=== PATIENT | female | born 1950 | race Caucasian/White ===

== ENCOUNTER → 2017-04-29 07:34 | Outpatient (CLI) | payer MEDICARE ==
[2015-11-12 09:36] VITALS: BMI 32.1
[~2017-04-29 07:34] MED LIST: BAYER CHEWABLE81 MG PO; BENADRYL25 MG PO; CETIRIZINE HCL5 MG PO; CLARITIN10 MG/TAB; GLUCOPHAGE1000 MG PO; HYDROCODON-ACE1 EAC6; IMDUR30 MG PO; IMDUR60 MG PO; IPRAT-ALBUT 0.5-3 ML UPD; NITROSTAT0.4 MG; NORCO 7.5/325 T1 TA1 PO; PLAVIX75 MG PO; PREDNISONE20 MG PO; PROVENTIL/2.5 MG/3 M NEB; TRAZODONE HCL150 MG PO; VENTOLIN HFA18 GM INH; XANAX0.5 MG PO; ZANTAC150 MG PO; ZESTRIL20 MG PO
== END | disposition home or self-care (01) ==
LOC: D.RAD 04-11 08:30
DX: R13.12 Dysphagia, oropharyngeal phase (principal)

== ENCOUNTER 2018-07-17 08:09 | Outpatient (CLI) | payer MEDICARE ==
[~2018-07-17] VITALS: Ht 157.5 cm; Wt 81.8 kg
--- NOTE | ~2018-07-17 | OP ---
PATIENT NAME: GYPSY GARCIA MEDICAL RECORD: [id number] :50 LOCATION:D.CAT ADMISSION DATE: SURGEON: COLUMBA VALENTINE MD DATE OF OPERATION: 07/17/2018 PROCEDURES: 1. PTCA stent left main. 2. Intravascular ultrasound of left main. 3. Intravascular ultrasound of the LAD. 4. Left heart catheterization. 5. Selective coronary angiography. 6. Left ventriculogram. INDICATION: Angina and coronary artery disease. PROCEDURE IN DETAIL: After informed consent was obtained and after a detailed description of risks, benefits as well as alternative therapies, the patient elected to proceed with angiogram and angioplasty. The right radial area was prepped and draped in normal sterile fashion. Right radial artery was cannulated via modified Seldinger technique with placement of 6-Scottish sheath. All catheters exchanged through this sheath. FINDINGS: Left ventriculogram was performed in standard 30-degree BLAKE view, reveals good cardiac wall motion throughout all segments. Overall ejection fraction estimated 60%. SELECTIVE CORONARY ANGIOGRAPHY: 1. Left main is with greater than 80% stenosis confirmed by intravascular ultrasound. 2. Proximal LAD has greater than 80% stenosis confirmed by intravascular ultrasound. 3. Left circumflex has previously placed stents, these are widely patent with no significant restenosis. No disease elsewise throughout the circumflex or its branches. 4. The right coronary artery has previously placed stents, these are widely patent with no significant restenosis. No disease elsewise throughout the right coronary and its branches. PTCA STENT OF THE LEFT MAIN AND LAD: Both lesions were covered with a 3.5 x 26 mm [place]. Result was 0% residual stenosis. OVERALL IMPRESSION: Successful percutaneous transluminal coronary angioplasty stent of the left main and LAD, both going from 80% initial stenosis to 0% residual. TRANSINT:[id number] Voice Confirmation ID: [id number] DOCUMENT ID: [id number] OPERATIVE REPORT [id number] JOSEVINAYAKGYPSYCOLUMBA SUE MD at 1729 CC: [id number] DICTATION DATE: 07/17/18 1124 GLOBAL SAFETY OFFICER: 07/17/18 1139 DEP CLI 07/17/18 [place] [address]
--- NOTE | ~2018-07-17 | HP ---
PATIENT: GYPSY BALDWIN MEDICAL RECORD: [id number] ACCOUNT: [id number] LOCATION:KATIE : 50 ADMISSION DATE: 07/17/18 PCP: SLICK CAMP MD HISTORY AND PHYSICAL EXAMINATION DIAGNOSES: 1. Angina. 2. Abnormal nuclear stress test, anterior ischemia. 3. Hypertension. 4. Atrial fibrillation. HISTORY OF PRESENT ILLNESS: Mrs. Baldwin presents with anginal symptomatology. Nuclear stress test revealed a large perfusion defect anteriorly, now brought for cardiac catheterization. PHYSICAL EXAMINATION: GENERAL APPEARANCE: Well-nourished, well-developed, appears stated age. Level of distress, comfortable. PSYCHIATRIC: Mental status, alert, normal affect. Orientation, oriented to time, place and person. EYES: Lids and conjunctiva, noninjected. No discharge, no pallor. ENT: Lips, teeth, gums, normal dentition. Oropharynx, no cyanosis, no pallor. NECK: Carotid arteries, bilateral normal upstroke, no bruits, no thrills. JUGULAR VEINS: No jugular venous pressure or distention. CERVICAL LYMPH NODES: Nontender, nonenlarged. THYROID: Not enlarged. Nontender. No nodules. LUNGS: Respiratory effort, unlabored. CHEST: Normal curvature. No thoracic deformity. No chest wall tenderness. Percussion, resonant. Auscultation, clear. No wheezes, no rales, no rhonchi. CARDIOVASCULAR: Precordial exam, nondisplaced. No heaves or pericardial thrills. Rate and rhythm, regular. Heart sounds, normal S1, normal S2. No S3, no gallop, no rub. Systolic murmur, not heard. Diastolic murmur, not heard. EXTREMITIES: No cyanosis, no edema. Peripheral pulses, full and equal in all extremities, except as noted. No bruits appreciated. ABDOMEN: Soft, nondistended. Normal aorta. No bruit. Nontender. No masses. Liver, nontender, no hepatomegaly. Spleen, nontender, no splenomegaly. MUSCULOSKELETAL: No joint tenderness. No joint swelling. No erythema. NEUROLOGICAL: Normal gait, normal strength, normal tone. SKIN: Warm and dry. OVERALL IMPRESSION: Anginal symptomatology with abnormal nuclear stress test, most likely she has hemodynamically significant coronary artery disease. We will proceed with coronary angiography. Further care depends upon findings of the angiography. TRANSINT:[id number] Voice Confirmation ID: [id number] DOCUMENT ID: [id number] HISTORY AND PHYSICAL [id number] GYPSY BALDWIN JEFFREY MD at 1729 CC: [id number] DICTATION DATE: 07/17/18 1122 PSYCHOLOGICAL ASSISTANT: 07/17/18 1126 DEP CLI 07/17/18 [place] [id number] [place] [id number]
--- NOTE | ~2018-07-17 | HEMODYNAMI ---
PATIENT:GYPSY GARCIA MEDICAL RECORD: [id number] : 50 LOCATION:DNANCY ADMISSION DATE: 07/17/18 Generatedon:07/17/201811:23 Patient name: GYPSY GARCIA Patient #: [id number] SSN: D OB: 1950 Date of study: 07/17/2018 Page: Of Hemodynamic Procedure Report Patient Data Patient Demographics Procedure consent was obtained First Name: GYPSY Gender: Female Last Name: JOSE : 1950 Middle Initial: RICO Age: 67 year(s) Patient #: [id number] Race: Additional ID: [id number] Contact details [address]: [address] [place] [address] State: [place] City: [place] Zip code: [address] Past Medical History Allergies Allergen Reaction Date Comments Reported Other allergy 11/12/2015 Beta-Blockers, Codeine, Iodine, Protonix, Statins, Sulfa, Valium Admission Admission Data Admission Date: 07/17/2018 Admission Time: 8:09 Procedure Procedure Types Cath Procedure Diagnostic Procedure [facility] w/Coronaries FFR/IVUS Intra-Coronary IVUS Initial Intra-Coronary IVUS Additional PCI Procedure Coronary Stent Coronary Stent Initial Procedure Description Procedure Date Procedure Date: 07/17/2018 Procedure Start Time: 11:02 Procedure End Time: 11:21 Procedure Staff Name Function Han Nevarez MD Performing Physician Mynor Lynne RT Monitor Kyler Carlos RN Nurse Amy Tolentino RT Scrub Procedure Data Cath Procedure Fluoroscopy Diagnostic fluoroscopy Total fluoroscopy Time: 4 time: 4 min min Diagnostic fluoroscopy Total fluoroscopy dose: 419 dose: 419 mGy mGy Contrast Material Contrast Material Type Amount (ml) Isovue 300 87 Entry Location Entry Primary Successful Side Size Upsize Upsize Entry Closure Peng ccessful Closure Location (Fr) 1 (Fr) 2 (Fr) Remarks Device Remarks Radial Right 6 Fr Mechanical artery Short Compression Estimated blood loss: 10 ml Diagnostic catheters Device Type Used For End Catheter Placement DIAGNOSTIC [place] 110cm 5 Procedure Fr catheter ([id number]) Procedure Complications No complications Procedure Medications Medication Administration Route Dosage Oxygen etCO2 Nasal cannula 2 l/min Heparin Flush Bag added to field 2 bags (1000units/500ml NS) 0.9% NaCl I.V. ml/hr Radial Cocktail added to field 1 syringe (Verapomil 2mg/Nitro 400mcg/Heparin 1500units) Fentanyl I.V. 50 mcg Versed I.V. 1 mg Fentanyl I.V. 50 mcg Versed I.V. 1 mg Fentanyl I.V. 50 mcg Versed I.V. 1 mg Fentanyl I.V. 50 mcg Radial Cocktail I.A. 1 syringe (Verapomil 2mg/Nitro 400mcg/Heparin 1500units) Versed I.V. 1 mg Heparin Bolus I.V. 4000 units Hemodynamics Rest Heart Rate: 70 (bpm) Pressure Samples Time Site Value (mmHg) Purpose Heart Use Rate(bpm) 11:05 AO 78/47(61) Snapshot 68 Snapshots Pre Cath Intra NCS Post Cath Vital Signs Time Heart Resp SPO2 etCO2 NIBP (mmHg) Rhythm Pain Sedation Rate (ipm) (%) (mmHg) Status Level (bpm) 10:31:41 70 17 92 0 179/103(155) NSR 0 (11) 10(A) , No pain 10:36:15 70 16 93 0 191/105(158) NSR 0 (11) 10(A) , No pain 10:40:44 66 17 93 30.7 165/89(136) NSR 0 (11) 10(A) , No pain 10:45:06 64 16 92 7.5 139/77(116) NSR 0 (11) 9(A) , No pain 10:49:24 64 16 93 40.5 134/75(89) NSR 0 (11) 9(A) , No pain 10:53:34 66 17 94 39 123/80(95) NSR 0 (11) 9(A) , No pain 10:57:48 65 16 94 41.2 119/70(86) NSR 0 (11) 9(A) , No pain 11:02:00 68 17 94 36 127/81(116) NSR 0 (11) 9(A) , No pain 11:06:08 66 17 93 26.2 112/67(81) NSR 0 (11) 9(A) , No pain 11:10:21 66 17 94 40.5 105/57(83) NSR 0 (11) 9(A) , No pain 11:14:31 66 16 94 36.7 119/68(96) NSR 0 (11) 9(A) , No pain 11:17:50 66 15 93 0 136/75(94) NSR 0 (11) 9(A) , No pain Medications Time Medication Route Dose Verified Delivered Reason Not es Effectiveness by by 10:30:49 Oxygen etCO2 2 l/min Han Vickers Per physician Nasal Roque Prescott RN cannula 10:30:58 Heparin Flush added 2 bags Han Vickers used for Bag to Roque Prescott RN procedure (1000units/500ml field NS) 10:31:06 0.9% NaCl I.V. ml/hr Han Vickers Per physician Roque Prescott RN 10:31:13 Radial Cocktail added 1 Han Vickers used for (Verapomil to syringe Roque Prescott RN procedure 2mg/Nitro field 400mcg/Heparin 1500units) 10:43:01 Fentanyl I.V. 50 mcg Han Vickers for sedation Roque Prescott RN 10:43:07 Versed I.V. 1 mg Han Navay for sedation Roque Prescott RN 10:46:55 Fentanyl I.V. 50 mcg Han Navay for sedation Roque Prescott RN 10:47:00 Versed I.V. 1 mg Han Vickers for sedation Roque Prescott RN 10:52:40 Fentanyl I.V. 50 mcg Han Navay for sedation Roque Prescott RN 11:03:14 Versed I.V. 1 mg Han [place] for sedation Roque Prescott RN 11:04:47 Fentanyl I.V. 50 mcg Han Navay for sedation Roque Prescott RN 11:04:58 Radial Cocktail I.A. 1 Han Short for (Verapomil syringe Roque Nevarez MD vasodilation 2mg/Nitro 400mcg/Heparin 1500units) 11:05:37 Versed I.V. 1 mg Han Vickers for sedation Roque Prescott RN 11:11:41 Heparin Bolus I.V. 4000 Han Vickers for units Roque Prescott RN anticoagulation Procedure Log Time Note 10:00:16 Amy Tolentino RT(R) sent for patient. Start room use. 10:13:17 Time tracking: Regular hours (M-F 7:00 - 5:00) 10:13:21 Plan of Care:Hemodynamics will remain stable., Cardiac rhythm will remain stable., Comfort level will be maintained., Respiratory function will remain adequate., Patient/ family verbilizes understanding of procedure., Procedure tolerated without complication., Recovers from procedure without complications.. 10:22:22 Patient received from Pre/Post Procedure Room to [facility] 3 Alert and oriented. Tansferred to table in Supine position. 10:22:23 Warm blankets applied, and dante hugger turned on for patient comfort. 10::23 Correct patient and procedure confirmed by team. 10:22:24 Signed procedure consent form obtained from patient. 10:22:25 ECG and BP/O2 sat monitors applied to patient. 10:30:21 Vital chart was started 10:30:49 Oxygen 2 l/min etCO2 Nasal cannula was administered by Rancho Prescott RN; Per physician; 10:30:58 Heparin Flush Bag (1000units/500ml NS) 2 bags added to field was administered by Rancho Prescott RN; used for procedure; 10:31:06 0.9% NaCl ml/hr I.V. was administered by Rancho Prescott RN; Per physician; 10:31:13 Radial Cocktail (Verapomil 2mg/Nitro 400mcg/Heparin 1500units) 1 syringe added to field was administered by Rancho Prescott RN; used for procedure; 10:36:33 Baseline sample Acquired. 10:36:37 Rhythm: sinus rhythm 10:36:39 Full Disclosure recording started 10:38:32 H&P Date Dictated: 07/17/2018 H&P Addendum completed by physician on day of procedure. (MUST COMPLETE FOR ALL OUTPATIENTS), New H&P dictated by physician.. 10:38:33 Pre-procedure instructions explained to patient. 10:38:33 Pre-op teaching completed and patient verbalized understanding. 10:38:35 Family in patients room. 10:38:36 Patient NPO since Midnight. 10:38:47 Is the patient allergic to Iodine/contrast media? Yes. 10:38:48 Was the patient premedicated? Yes 10:39:01 Is patient on blood thinner?Yes 10:39:03 ACC The patient was administered the following blood thiners within the last 24 hours: ACCPlavix 10:39:06 Patient diabetic? Yes. 10:39:07 If diabetic: On Metformin? Yes 10:39:10 If on Metformin: Last Dose? 07/16/2018 10:39:18 Patient not . Patient is over age 55. 10:39:21 Previous problem with sedation/anesthesia? No ? 10:39:24 Snore? Yes 10:39:26 Sleep apnea? No 10:39:27 Deviated septum? No 10:39:27 Opens mouth fully? Yes 10:39:28 Sticks out tongue? Yes 10:39:31 Airway obstruction? Yes COPD 10:39:35 Dentures? Yes IN 10:39:40 Pre procedure: right dorsailis pedis pulse 1+ Palpable, but thready & weak; easily obliterated 10:39:41 Modified Balbir's test Ulnar < 7 seconds 10:39:43 Patient pain scale 0/10 ?. 10:39:48 IV patent on arrival in left forearm with 0.9% NaCl at O. 10:39:50 Lab results completed and on chart. 10:39:53 Right Radial & Right Groin area was prepped with chlora-prep and draped in sterile fashion 10:39:54 Alarms reviewed by R. N. 10:39:54 Sharps counted by scrub and verified by R.N. 10:41:48 Use device set Radial Dx or PCI 10:41:51 ACIST Manifold (00052) opened to sterile field. 10:41:52 Tegaderm 4 x 4 (1626W) opened to sterile field. 10:41:53 ACIST Hand Control (35223) opened to sterile field. 10:41:55 ACIST Syringe (21540) opened to sterile field. 10:41:55 Medline Cath Pack ([id number]) opened to sterile field. 10:41:55 Bag Decanter (2001S) opened to sterile field. 10:41:56 DIAGNOSTIC WIRE .035 260cm J wire (155379) opened to sterile field. 10:41:56 MBrace Wrist Support ([id number]) opened to sterile field. 10::58 SHEATH 6Fr Prelude Radial ([id number]) opened to sterile field. 10::32 --------ALL STOP TIME OUT------ :42:32 Final Timeout: patient, procedure, and site verified with staff and physician. All members of the team are in agreement. 10:42:41 Right Radial & Right Groin site verified by team. ::44 Physical assessment completed. ASA score P 2 - A patient with mild systemic disease as per Han Nevarez MD. ::47 Sedation plan: IV Moderate Sedation Medication:Versed, Fentanyl 10:43:01 Fentanyl 50 mcg I.V. was administered by Rancho Prescott RN; for sedation; 10:43:07 Versed 1 mg I.V. was administered by Rancho Prescott RN; for sedation; 10:46:55 Fentanyl 50 mcg I.V. was administered by Rancho Prescott RN; for sedation; 10:47:00 Versed 1 mg I.V. was administered by Rancho Prescott RN; for sedation; 10:52:40 Fentanyl 50 mcg I.V. was administered by Rancho Prescott RN; for sedation; 11:02:25 Procedure started. 11:03:01 No lidocaine used due to allergy. 11:03:12 A 6 Fr Short sheath was inserted into the Right Radial artery 11:03:14 Versed 1 mg I.V. was administered by Rancho Prescott RN; for sedation; 11:03:52 A DIAGNOSTIC [place] 110cm 5 Fr catheter (932059) was advanced over the wire and used for Procedure. 11:04:47 Fentanyl 50 mcg I.V. was administered by Rancho Prescott RN; for sedation; 11:04:51 LV angiography performed. 11:04:53 LV gram done using BLAKE 11:04:58 Radial Cocktail (Verapomil 2mg/Nitro 400mcg/Heparin 1500units) 1 syringe I.A. was administered by Han Nevarez MD; for vasodilation; 11:05:09 EF : 60 % 11:05:13 Injector settings: Ml/sec: 7, Volume: 15, 11:05:21 LCA angiography performed. 11:05:37 Versed 1 mg I.V. was administered by Rancho Prescott RN; for sedation; 11:06:49 RCA angiography performed. 11:07:06 Catheter exchanged over wire. 11:07:23 Use device set TAU PCI 11:07:51 GUIDE 6FR XBLAD 3.5 catheter ([id number]) opened to sterile field. 11:07:52 [place] IVUS Catheter ([id number]) opened to sterile field. 11:07:56 INFLATOR Merit BasixCompak (YC3954) opened to sterile field. 11:08:06 CHOICE PT Extra Support 182cm wire ([id number]) opened to sterile field. 11:08:42 6 Fr XBLAD 3.5 guide catheter was inserted over the wire 11:09:07 CPTXS wire advanced. 11:09:24 Wire advanced across lesion. 11:09:29 IVUS catheter advanced over wire. 11:10:28 IVUS pass to LMCA lesion performed. 11:10:30 IVUS pass to LAD lesion performed. 11:10:44 IVUS catheter removed over wire. 11:11:41 Heparin Bolus 4000 units I.V. was administered by Rancho Prescott RN; for anticoagulation; 11:12:27 Inflate balloon Inflation number: 1 A EUPHORA 3.0 x 15 Balloon ([id number]) was prepped and advanced across the Prox LAD, then inflated to 13 IVAN for 0:10 (min:sec). 11:13:06 Balloon removed over the wire. 11:13:44 Place stent Inflation Number: 2 A KEN RX 3.5 x 26 stent ([id number]) was prepped and advanced across the Prox LAD. The stent was deployed at 13 IVAN for 0:10 (min:sec). 11:14:12 Stent catheter was removed intact over wire. 11:14:13 Wire removed. 11:14:13 Guide catheter removed. 11:14:27 TR BAND Standard ([id number]) opened to sterile field. 11:14:46 Sheath removed intact; hemostasis achieved with Mechanical Compression to the Right Radial artery. 11:14:51 Procedure ended.(Physican Out) 11:16:13 Fluoroscopy time 04.00 minutes. 11:16:18 Fluoroscopy dose: 419 mGy 11:16:18 Flurop Dose total: 419 11:16:21 Contrast amount:Isovue 300 87ml. 11:16:22 Sharps counted by scrub and verified by R.N. 11:16:25 TR band inflated with 12cc of air. 11:16:33 Insertion/operative site no bleeding no hematoma. 11:16:35 Post Procedure Pulses reassessed and unchanged 11:16:37 Post-procedure physical assessment completed. ASA score P 2 - A patient with mild systemic disease as per Han Nevarez MD. 11:16:40 Post procedure rhythm: unchanged. 11:16:42 Estimated blood loss: 10 ml 11:16:43 Post procedure instruction explained to patient.Patient verbalizes understanding. 11:16:44 Patient needs reinforcement of post procedure teaching. 11:17:00 Procedure type changed to Cath procedure, Diagnostic procedure, LHC, LHC w/Coronaries, FFR/IVUS, Intra-Coronary IVUS Initial, Intra-Coronary IVUS Additional, PCI procedure, Coronary Stent, Coronary Stent Initial 11:17:24 Procedure and supply charges have been captured, reviewed, submitted and are correct. 11:17:27 Procedure Complication : No complications 11:19:49 Vital chart was stopped 11:19:50 See physician's report for complete and final results. 11:21:43 Report given to Pre/Post Procedure Room. 11:21:47 Patient transfered to Pre/Post Procedure Room with Stretcher. 11:21:58 Procedure ended. 11:21:58 Full Disclosure recording stopped 11:23:15 End room use (Document Last) Intervention Summary Intervention Notes Time ActionType Lesion and Equipment Used Action# Pressure Duration Attributes 11:12:27 Inflate Prox LAD EUPHORA 3.0 x 1 13 00:10 balloon 15 Balloon ([id number]) 11:13:44 Place stent Prox LAD KEN RX 3.5 x 2 13 00:10 26 stent ([id number]) Device Usage Item Name Manufacture Quantity Catalog Number Hospital Part Current Minimal Lot# / Charge Number Stock Stock Serial# Code ACIST Manifold Acist 1 29598 608663 910076 135825 5 (42465) Medical Systems Sionex Tegaderm 4 x 4 3M 1 1626W 214965 505421 555490 5 (1626W) ACIST Hand Acist 1 41793 144445 267431 084188 5 Control (22161) Medical Systems Inc ACIST Syringe Acist 1 52072 399409 978667 273248 20 (11761) Medical Systems Inc Medline Cath Cardinal 1 [id number] 983389 92634 460666 5 Pack Health ([id number]) Bag Decanter Microtek 1 2001S 777320 02314 799146 5 (2001S) Medical Inc. DIAGNOSTIC WIRE St Rob 1 909203 812629 144936 666128 30 .035 260cm J wire (415222) MBrace Wrist Advanced 1 140-0250-00 506224 40202 452521 5 Support Vascular ([id number]) Dynamics SHEATH 6Fr Merit 1 [id number] 146676 816018 203359 5 Prelude Radial Medical ([id number]) DIAGNOSTIC Terumo 1 63-3832 413880 441820 703982 5 [place] 110cm 5 Fr catheter (906218) GUIDE 6FR XBLAD Cardinal 1 [id number] 396270 822644 623570 10 3.5 catheter Health (92059080) [place] 1 45357E 766040 493326 795294 8 [place] IVUS Catheter (93877L) INFLATOR Merit Merit 1 RL5018 082805 715142 680664 15 FIT BiotechwiNetcontinuum Medical (FY8500) CHOICE PT Extra [place] 1 [id number] 511206 100908 238221 5 Support 182cm Scientific wire ([id number]) EUPHORA 3.0 x Medtronic 1 [id number] 887690 427987 994232 5 [id number] 15 Balloon ([id number]) KEN RX 3.5 x Medtronic 1 [id number] 461133 4257575 375766 5 [id number] 26 stent ([id number]) TR BAND Terumo 1 [id number] 266718 252961 678641 40 Standard ([id number]) Signature [place] Stage Time Signature Unsigned Intra-Procedure 07/17/2018 Mynor Lynne 11:23:27 AM RT(R) Signatures Monitor : Mynor Lynne RT Signature : Date : Time : [facility] [address] [place] [address]
[2018-07-17 08:33] VITALS: BP 158/76; Ht 157.5 cm; Wt 81.8 kg
[2018-07-17 08:41] LABS: BASOPHILS 0.1 % (0-2); EOSINOPHILS 0 % (0-7); HEMATOCRIT 44.7 % (36.0-48.0); HEMOGLOBIN 15.3 g/dL (12-16); IMMATURE GRANULOCYTES 0.5 % (0-5); LYMPHOCYTES 9.8 % (15-50); MCH 31.6 pg (26.0-34.0); MCHC 34.2 g/dL (31.0-37.0); MCV 92.4 fL (80.0-100.0); MEAN PLATELET VOLUME 9.5 fL (7.4-10.4); MONOCYTES 0.8 % (2-11); NEUTROPHILS 88.8 % (40-80); PLATELET COUNT 300 10x3/uL (130-400); RBC 4.84 10x6/uL (4.00-5.40); RDW 13.2 % (11.5-14.5)
[2018-07-17 08:51] LABS: ANION GAP 15.4 mmol/L (8-16); CARBON DIOXIDE 23.5 mmol/L (21.0-32.0); CREATININE - SERUM 1.5 mg/dL (0.6-1.3); POTASSIUM - SERUM 4.9 mmol/L (3.5-5.1)
== END 2018-07-17 15:15 | disposition home or self-care (01) ==
LOC: D.CATH 08:09
PROVIDERS: Internal Medicine Interventional Cardiology
DX: I25.119 Atherosclerotic heart disease of native coronary artery with unspecified angina pectoris (principal); I10 Essential (primary) hypertension; I48.91 Unspecified atrial fibrillation; Z01.812 Encounter for preprocedural laboratory examination
CPT/HCPCS: 93458; C9600 ×2; 92978; 92979

== ENCOUNTER 2018-07-30 18:32 | Outpatient (CLI) | payer MEDICARE ==
[~2018-07-30] VITALS: Ht 157.5 cm; Wt 84.1 kg
--- NOTE | ~2018-07-30 | HEMODYNAMI ---
PATIENT:GYPSY GARCIA MEDICAL RECORD: [id number] : 50 LOCATION:D. D.2116 ADMISSION DATE: 07/30/18 Generatedon:07/31/20189:16 Patient name: GYPSY GARCIA Patient #: [id number] SSN: D OB: 1950 Date of study: 07/31/2018 Page: Of Hemodynamic Procedure Report Patient Data Patient Demographics Procedure consent was obtained First Name: GYPSY Gender: Female Last Name: JOSE : 1950 [facility] Initial: RICO Age: 67 year(s) Patient #: [id number] Race: Additional ID: [id number] Contact details [address]: [address] [place] [address] State: [place] City: [place] Zip code: [address] Past Medical History Allergies Allergen Reaction Date Comments Reported Other allergy 11/12/2015 Beta-Blockers, Codeine, Iodine, Protonix, Statins, Sulfa, Valium Other allergy 07/31/2018 BETABLOCKERS, NSAIDS, STATINS, SULFA, CODEINE, DIAZEPAM, IODINE Admission Admission Data Admission Date: 07/30/2018 Admission Time: 20:40 Room #: D.2116 Lab Results Lab Result Date: 07/31/2018 Lab Result Time: 0:00 Biochemistry Name Units Result Min Max BUN mg/dl 11 --(-*--)-- 7 18 Creatinine mg/dl 1.2 --(---*)-- 0.6 1.3 CBC Name Units Result Min Max Hemoglobin g/dl 14.6 --(-*--)-- 13.5 17.5 Procedure Procedure Types Cath Procedure Diagnostic Procedure [facility] w/Coronaries Sedation Charges Moderate Sedation up to 15 minutes PCI Procedure PTCA PTCA Initial Procedure Description Procedure Date Procedure Date: 07/31/2018 Procedure Start Time: 8:40 Procedure End Time: 9:14 Procedure Staff Name Function Dawit Lowery MD Performing Physician Lex Shi RN Nurse Amy Tolentino RT Monitor Cande Fontaine RT Scrub Layla Trejo RN Nurse Procedure Data Cath Procedure Fluoroscopy Diagnostic fluoroscopy Total fluoroscopy Time: 7.4 time: 7.4 min min Diagnostic fluoroscopy Total fluoroscopy dose: dose: 1071 mGy 1071 mGy Contrast Material Contrast Material Type Amount (ml) Isovue 300 94 Entry Location Entry Primary Successful Side Size Upsize Upsize Entry Closure Peng ccessful Closure Location (Fr) 1 (Fr) 2 (Fr) Remarks Device Remarks Radial Right 6 Fr Mechanical artery Short Compression Estimated blood loss: 5 ml Diagnostic catheters Device Type Used For End Catheter Placement DIAGNOSTIC Joel 110cm LV Angiography 5Fr catheter ([id number]) DIAGNOSTIC Joel 110cm Right Coronary 5Fr catheter ([id number]) Angiography DIAGNOSTIC Joel 110cm Left Coronary 5Fr catheter ([id number]) Angiography Procedure Complications No complications Procedure Medications Medication Administration Route Dosage 0.9% NaCl I.V. 100 ml/hr Oxygen etCO2 Nasal cannula 2 l/min Lidocaine 2% added to field 20 Heparin Flush Bag added to field 2 bags (1000units/500ml NS) Versed I.V. 2 mg Fentanyl I.V. 50 mcg Radial Cocktail I.A. 1 syringe (Verapomil 2mg/Nitro 400mcg/Heparin 1500units) Versed I.V. 1 mg Angiomax (bolus) I.V. 12.6 ml Angiomax Drip I.V. drip 29.4 ml/hr (250mg/50ml NS) (Standard) Nitroglycerin IC/IA I.C. 300 mcg Angiomax Drip 29.4 ml/hr (250mg/50ml NS) (Standard) Hemodynamics Rest Heart Rate: 54 (bpm) Pressure Samples Time Site Value (mmHg) Purpose Heart Use Rate(bpm) 8:44 LV 97/11,11 EDP 80 8:44 AO 118/60(83) Pullback 48 8:44 LV 105/8,21 Pullback 48 Gradients Valve Time Site 1 Site 2 Mean SEP/DFP Peak To Heart Use (mmHg) (sec/min) Peak Rate (mmHg) (bpm) Aortic 8:44 LV AO 0 48 105/8,21 118/60(83) Calculations Valve P-P Mean Valve Index Valve Source Name Gradient Area Flow (cm2) Aortic 0 0 Snapshots Pre Cath Intra NCS Post Cath Vital Signs Time Heart Resp SPO2 etCO2 NIBP (mmHg) Rhythm Pain Sedation Rate (ipm) (%) (mmHg) Status Level (bpm) 8:30:02 54 14 98 36.2 159/80(127) NSR 0 (11) 10(A) , No pain 8:34:43 53 15 99 33.2 127/68(98) NSR 0 (11) 10(A) , No pain 8:39:25 53 17 97 33.2 127/68(108) NSR 0 (11) 10(A) , No pain 8:44:04 71 19 93 35.5 119/66(98) NSR 0 (11) 10(A) , No pain 8:48:43 56 18 93 30.9 115/68(90) NSR 0 (11) 10(A) , No pain 8:53:23 56 19 94 34.7 128/68(115) NSR 0 (11) 10(A) , No pain 8:58:41 56 20 94 39.2 144/79(120) NSR 0 (11) 10(A) , No pain 9:03:25 57 20 92 33.2 151/78(121) NSR 0 (11) 10(A) , No pain 9:08:14 58 26 93 37 144/76(130) NSR 0 (11) 10(A) , No pain Medications Time Medication Route Dose Verified Delivered Reason Notes Effectiveness by by 8:28:36 0.9% NaCl I.V. 100 Dawit Buffie used for ml/hr Beverley almanza MD 8:28:49 Oxygen etCO2 Nasal 2 l/min Dawit Buffie used for cannula Beverley Shi RN procedure 8:29:00 Lidocaine 2% added to field 20ml Dawit Dawit for local vial Beverley Lowery MD anesthetic 8:29:10 Heparin Flush added to field 2 bags Dawit Dawit used for Bag Beverley Lowery MD procedure (1000units/500ml NS) 8:40:43 Versed I.V. 2 mg Dawit Buffie for sedatio n Beverley Shi RN, MD 8:40:51 Fentanyl I.V. 50 mcg Dawit Buffie for sedatio n Beverley Shi RN, MD 8:43:07 Radial Cocktail I.A. 1 Dawit Dawit for (Verapomil syringe Beverley Lowery MD vasodilation 2mg/Nitro MD 400mcg/Heparin 1500units) 8:43:13 Versed I.V. 1 mg Dawit Buffie for sedatio n Beverley Shi RN, MD 8:54:10 Angiomax (bolus) I.V. 12.6 ml Dawit Buffie for Beverley Shi RN anticoagulation 8:55:27 Angiomax Drip I.V. drip 29.4 Dawit Buffie for (250mg/50ml NS) ml/hr Beverley Shi RN anticoagulation (Standard) 9:04:03 Nitroglycerin I.C. 300 mcg Dawit Dawit for IC/IA Beverley Lowery MD vasodilation 9:07:49 Angiomax Drip I.V. 29.4 Dawit Dawit for (250mg/50ml NS) drip-discontined ml/hr Beverley Lowery MD anticoagulation (Standard) Procedure Log Time Note 8:09:54 Amy Counts RT(R) sent for patient. Start room use. 8:09:55 Time tracking: Regular hours (M-F 7:00 - 5:00) 8:09:59 Plan of Care:Hemodynamics will remain stable., Cardiac rhythm will remain stable., Comfort level will be maintained., Respiratory function will remain adequate., Patient/ family verbilizes understanding of procedure., Procedure tolerated without complication., Recovers from procedure without complications.. 8:11:53 Signed procedure consent form obtained from patient. 8:12:00 H&P Date Dictated: 07/30/2018 Within 30 days and on chart., H&P Addendum completed by physician on day of procedure. (MUST COMPLETE FOR ALL OUTPATIENTS). 8:12:44 Patient allergic to Other allergyBETABLOCKERS, NSAIDS, STATINS, SULFA, CODEINE, DIAZEPAM, IODINE 8:14:41 Lab Result : BUN 11 mg/dl 8:14:41 Lab Result : Hemoglobin 14.6 g/dl 8:14:41 Lab Result : Creatinine 1.2 mg/dl 8:20:26 Patient received from Med II to CCL 1 Alert and oriented. Tansferred to table in Supine position. 8:20:26 Warm blankets applied, and dante hugger turned on for patient comfort. 8:20:27 Correct patient and procedure confirmed by team. 8:20:27 ECG and BP/O2 sat monitors applied to patient. 8:28:18 Vital chart was started 8:28:36 0.9% NaCl 100 ml/hr I.V. was administered by Lex Shi RN; used for procedure; 8:28:49 Oxygen 2 l/min etCO2 Nasal cannula was administered by Lex Shi RN; used for procedure; 8:29:00 Lidocaine 2% 20ml vial added to field was administered by Dawit Lowery MD; for local anesthetic; 8:29:10 Heparin Flush Bag (1000units/500ml NS) 2 bags added to field was administered by Dawit Lowery MD; used for procedure; 8:30:41 Baseline sample Acquired. 8:32:32 Baseline sample Acquired. 8:32:32 Baseline sample Acquired. 8:32:40 Rhythm: sinus bradycardia 8:32:42 Full Disclosure recording started 8:32:43 Pre-procedure instructions explained to patient. 8:32:44 Pre-op teaching completed and patient verbalized understanding. 8:32:45 Family in patients room. 8:32:47 Patient NPO since Midnight. 8:32:49 Is the patient allergic to Iodine/contrast media? Yes. 8:32:50 Was the patient premedicated? Yes 8:32:51 Is patient on blood thinner?Yes 8:32:53 ACC The patient was administered the following blood thiners within the last 24 hours: ACCPlavix 8:32:55 Patient diabetic? Yes. 8:32:56 If diabetic: On Metformin? Yes 8:33:01 If on Metformin: Last Dose? 07/30/2018 8:33:04 Previous problem with sedation/anesthesia? No ? 8:33:05 Snore? Yes 8:33:06 Sleep apnea? No 8:33:07 Deviated septum? No 8:33:08 Opens mouth fully? Yes 8:33:09 Sticks out tongue? Yes 8:33:11 Airway obstruction? Yes COPD 8:33:15 Dentures? Yes IN 8:33:19 Pre procedure: right dorsailis pedis pulse 2+ Normal; easily identifiable; not easily obliterated 8:33:20 Modified Balbir's test Ulnar < 7 seconds 8:33:22 Patient pain scale 0/10 ?. 8:33:29 IV patent on arrival in left forearm with 0.9% NaCl at KVO. 8:33:32 Lab results completed and on chart. 8:33:36 Right Radial & Right Groin area was prepped with chlora-prep and draped in sterile fashion 8:33:37 Alarms reviewed by R. N. 8:33:37 Sharps counted by scrub and verified by R.N. 8:33:40 Use device set Radial Dx or PCI 8:33:41 ACIST Syringe (81228) opened to sterile field. 8:33:42 Medline Cath Pack ([id number]) opened to sterile field. 8:33:42 Bag Decanter (2002S) opened to sterile field. 8:33:43 DIAGNOSTIC WIRE .035 260cm J wire (957842) opened to sterile field. 8:33:43 ACIST Hand Control (50379) opened to sterile field. 8:33:44 ACIST Manifold (97511) opened to sterile field. 8:33:46 MBrace Wrist Support ([id number]) opened to sterile field. 8:33:47 SHEATH 6Fr Prelude Radial ([id number]) opened to sterile field. 8:34:24 Physician paged 8:37:18 Final Timeout: patient, procedure, and site verified with staff and physician. All members of the team are in agreement. 8:37:21 Right Radial site verified by team. 8:37:24 Physical assessment completed. ASA score P 2 - A patient with mild systemic disease as per Dawit Lowery MD. 8:37:27 Sedation plan: IV Moderate Sedation Medication:Versed, Fentanyl 8:40:23 Procedure started. 8:40:43 Versed 2 mg I.V. was administered by Lex Shi RN; for sedation; 8:40:51 Fentanyl 50 mcg I.V. was administered by Lex Shi RN; for sedation; 8:41:08 NO LOCAL ANESTHETIC USED 8:41:39 A 6 Fr Short sheath was inserted into the Right Radial artery 8:42:36 A DIAGNOSTIC Joel 110cm 5Fr catheter (239487) was advanced over the wire and used for LV Angiography. 8:43:07 Radial Cocktail (Verapomil 2mg/Nitro 400mcg/Heparin 1500units) 1 syringe I.A. was administered by Dawit Lowery MD; for vasodilation; 8:43:13 Versed 1 mg I.V. was administered by Lex Shi RN; for sedation; 8:44:40 LV gram done using BLAKE 8:44:41 LV hemodynamics recorded. 8:44:44 Injector settings: Ml/sec: 12, Volume: 8, 8:45:00 EF : 55 % 8:48:37 A DIAGNOSTIC Joel 110cm 5Fr catheter (006737) was advanced over the wire and used for Right Coronary Angiography. 8:48:42 A DIAGNOSTIC Joel 110cm 5Fr catheter (231716) was advanced over the wire and used for Left Coronary Angiography. 8:48:43 Catheter removed. 8:48:48 Use device set NORRED PCI 8:48:50 SHEATH Prelude 6Fr 0.035 (RLJ-1M-07-035) opened to sterile field. 8:48:57 INFLATOR Merit BasixCompak (JR1774) opened to sterile field. 8:48:58 COPILOT Valve Control (2072474) opened to sterile field. 8:49:00 BMW 190cm Humphreys 2 J wire ([id number]) opened to sterile field. 8:50:42 GUIDE 6FR EBU 3.5 SH catheter ([id number]) opened to sterile field. 8:50:56 6 Fr EBU 3.5 SH guide catheter was inserted over the wire 8:53:01 BMW wire advanced. 8:54:10 Angiomax (bolus) 12.6 ml I.V. was administered by Lex Shi RN; for anticoagulation; 8:55:27 Angiomax Drip (250mg/50ml NS) (Standard) 29.4 ml/hr I.V. drip was administered by Lex Shi RN; for anticoagulation; 8:59:04 Inflate balloon Inflation number: 1 A EUPHORA 2.0 x 10 Balloon ([id number]) was prepped and advanced across the 1st Diag, then inflated to 10 IVAN for 0:12 (min:sec). 8:59:36 Balloon removed over the wire. 9:03:19 Wire removed. 9:04:03 Nitroglycerin IC/IA 300 mcg I.C. was administered by Dawit Lowery MD; for vasodilation; 9:04:28 Guide catheter removed. 9:04:52 Sheath removed intact; hemostasis achieved with Mechanical Compression to the Right Radial artery. 9:05:24 Procedure ended.(Physican Out) 9:06:19 Fluoroscopy time 07.40 minutes. 9:06:23 Fluoroscopy dose: 1071 mGy 9:06:23 Flurop Dose total: 1071 9:06:27 Contrast amount:Isovue 300 94ml. 9:06:30 Sharps counted by scrub and verified by R.N. 9:06:35 TR band inflated with 14cc of air. 9:06:37 Insertion/operative site no bleeding no hematoma. 9:06:47 Post right radial artery:stable, clean and dry 9:06:49 Post Procedure Pulses reassessed and unchanged 9:06:54 Post-procedure physical assessment completed. ASA score P 2 - A patient with mild systemic disease as per Dawit Lowery MD. 9:06:56 Post procedure rhythm: unchanged. 9:07:23 Estimated blood loss: 5 ml 9:07:25 Post procedure instruction explained to patient.Patient verbalizes understanding. 9:07:25 Patient needs reinforcement of post procedure teaching. 9:07:37 Procedure type changed to Cath procedure, Diagnostic procedure, LHC, LHC w/Coronaries, Sedation Charges, Moderate Sedation up to 15 minutes, PCI procedure, PTCA, PTCA Initial 9:07:43 Procedure Complication : No complications 9:07:45 See physician's report for complete and final results. 9:07:49 Angiomax Drip (250mg/50ml NS) (Standard) 29.4 ml/hr I.V. drip-discontined was administered by Dawit Lowery MD; for anticoagulation; 9:07:52 TR BAND Standard ([id number]) opened to sterile field. 9:09:40 Procedure and supply charges have been captured, reviewed, submitted and are correct. 9:10:22 Vital chart was stopped 9:14:03 Report given to Pre/Post Procedure Room. 9:14:06 Patient transfered to Pre/Post Procedure Room with Stretcher. 9:14:09 Procedure ended. 9:14:09 Full Disclosure recording stopped 9:14:15 End room use (Document Last) Intervention Summary Intervention Notes Time ActionType Lesion and Equipment Action# Pressure Duration Attributes Used 8:59:04 Inflate 1st Diag EUPHORA 1 10 00:12 balloon 2.0 x 10 Balloon ([id number]) Device Usage Item Name Manufacture Quantity Catalog Number Hospital Part Current Minimal Lot# / Charge Number Stock Stock Serial# Code ACIST Syringe Acist 1 17249 [id number] 754023 089764 20 (03758) Medical Systems Inc Medline Cath Cardinal 1 [id number] 591597 11734 163943 5 Pack Health ([id number]) Bag Decanter Microtek 1 2001S 561299 37005 144243 5 (2001S) Medical Inc. DIAGNOSTIC WIRE St Rob 1 371505 699278 994040 915363 30 .035 260cm J wire (423715) ACIST Hand Acist 1 41084 678750 630868 896375 5 Control (17804) Medical Systems Inc ACIST Manifold Acist 1 51116 130284 138487 627431 5 (21822) Tansler [employer] Inc MBrace Wrist Advanced 1 140-0250-00 196026 13157 635983 5 Support Vascular ([id number]) Dynamics SHEATH 6Fr Merit 1 [id number] 616331 605798 213107 5 Prelude Radial Medical ([id number]) DIAGNOSTIC Terumo 1 40-5023 639421 783534 708345 5 Joel 110cm 5Fr catheter (277212) SHEATH Prelude Merit 1 [id number]-[id number]-75-35 584137 4175724 461868 5 6Fr 0.035 Medical ([id number]-6O-63-035) INFLATOR Merit Merit 1 [id number] 450094 045913 350978 15 BasixComhik Medical (SI8309) COPILOT Valve Wen 1 9174755 948237 103740 208054 5 Control Vascular (4896098) BMW 190cm Wen 1 [id number] 674544 38374 170196 5 Humphreys 2 J Vascular wire ([id number]) GUIDE 6FR EBU Medtronic 1 [id number] 284840 17360 169210 1 3.5 SH catheter ([id number]) EUPHORA 2.0 x Medtronic 1 [id number] 450403 834394 438475 5 [id number] 10 Balloon ([id number]) TR BAND Terumo 1 [id number] 885860 872787 810545 40 Standard ([id number]) Signature Audit [place] Stage Time Signature Unsigned Intra-Procedure 07/31/2018 Amy 9:16:00 AM Counts RT(R) Signatures Monitor : Amy Signature : Counts RT Date : Time : [address] [place] [address]
--- NOTE | ~2018-07-30 | OP ---
PATIENT NAME: GYPSY GARCIA MEDICAL RECORD: [id number] :50 LOCATION:[facility] ADMISSION DATE:07/30/18 SURGEON: HAFSA GRIMM MD DATE OF OPERATION: 07/31/2018 PROCEDURE: Left heart cath, LV gram, coronary angiogram, PTCA of the first diagonal. PROCEDURE IN DETAIL: The patient was brought to cardiac catheterization lab in stable condition. The right wrist was sterilely prepped and draped. The patient had a 6-Brazilian sheath placed in right radial artery in a retrograde fashion using a modified Seldinger technique. The patient then had angiography selectively of the left ventricular cavity, the right coronary artery and the left coronary artery respectively. We then exchanged her diagnostic catheters for an interventional guiding catheter. We intubated the left coronary artery. We were able to get the distal wire positioned into the mid diagonal vessel where we had identified a severe stenosis in the mid diagonal. We then delivered a 2.0 balloon into the area of 99% stenosis of the mid diagonal. Of note is that we did have to cross through a stent into the diagonal vessel itself. There was some wire biasing, but we were able to deliver the balloon with some difficulty to the area of stenosis and deploy at nominal pressures showing a reduction of the 99% stenosis to approximately 30% residual stenosis. The procedure was terminated successfully. HEMODYNAMICS: Left ventricular ejection fraction 65%. The end-diastolic pressure was normal. There is no significant mitral regurgitation. There is no gradient across the aortic valve. FINDINGS: 1. The right coronary artery is a large dominant vessel. We were able to show patent stent in the proximal vessel, in the mid portion, there was diffuse atherosclerotic changes and mild in-stent restenosis, but good flow characteristics throughout the dominant right coronary artery and no hemodynamically significant stenoses identified on angiography. 2. The left main has a stent distally and it is widely patent. There is a slight gap in the proximal left main stent to the distal left main vessel itself, but the area of distal left main stenosis is well opposed to the stent. 3. The circumflex vessel is crossed by the stent, but there is no flow disruption in that area. There is no lucency and we felt very confident that this does not represent a stenosis in that, crossing of that in a T-type fashion. The circumflex itself has mild atherosclerotic changes, but good flow characteristics. No hemodynamically significant stenosis. 4. The LAD is shown to have patent stents throughout the vessel. There is mild atherosclerotic burden and mild in-stent restenosis upon moderate calcification. The mid diagonal out of the mid stented area has good flow characteristics, however, in the midportion of that mid diagonal, there is a 99% stenosis. Status post angioplasty, that was reduced to 30% residual stenosis and the procedure was terminated successfully. IMPRESSION: Patent stents in the left main circumflex junction. Successful angioplasty of the mid diagonal vessel. Preserved left ventricular systolic function. OPERATIVE REPORT [id number] GYPSY GARCIA RECOMMENDATIONS: Continue aggressive secondary risk factor modification, dual antiplatelet therapy and antianginal control. TRANSINT:[id number] Voice Confirmation ID: [id number] DOCUMENT ID: [id number] HAFSA GRIMM MD at 1348 CC: [id number] DICTATION DATE: 07/31/18 0912 SUPERVISOR CORDUROY CUTTING: 07/31/18 1352 DIS IN 07/31/18 [id number] [place] [address]
[2018-07-30] MEDS ORDERED: NEXIUM20 MG PO (18:44)
[2018-07-30 19:17] LABS: BASOPHILS 0.3 % (0-2); EOSINOPHILS 0.7 % (0-7); HEMATOCRIT 42.7 % (36.0-48.0); HEMOGLOBIN 14.6 g/dL (12-16); IMMATURE GRANULOCYTES 0.2 % (0-5); LYMPHOCYTES 20.2 % (15-50); MCH 31.4 pg (26.0-34.0); MCHC 34.2 g/dL (31.0-37.0); MCV 91.8 fL (80.0-100.0); MEAN PLATELET VOLUME 9.5 fL (7.4-10.4); MONOCYTES 7.4 % (2-11); NEUTROPHILS 71.2 % (40-80); PLATELET COUNT 251 10x3/uL (130-400); RBC 4.65 10x6/uL (4.00-5.40); RDW 13.1 % (11.5-14.5)
[2018-07-30 19:21] VITALS: BP 181/89
[2018-07-30 19:33] LABS: ALBUMIN 3.5 g/dL (3.4-5.0); ALKALINE PHOSPHATASE 64 U/L (46-116); ALT (SGPT) 26 U/L (10-68); BILIRUBIN - TOTAL 0.19 mg/dL (0.2-1.3); CALC OSMOLALITY 276 mosm/kg (275-300); CARBON DIOXIDE 26.5 mmol/L (21.0-32.0); CHLORIDE - SERUM 103 mmol/L (98-107); CREATININE - SERUM 1.2 mg/dL (0.6-1.3); POTASSIUM - SERUM 3.8 mmol/L (3.5-5.1); PROTEIN - SERUM 7.8 g/dL (6.4-8.2); SODIUM 139 mmol/L (136-145); UREA NITROGEN 11 mg/dL (7-18); eGFR NON AFRICAN AMERICAN 47 mL/min (90-120)
[2018-07-30 19:34] LABS: GLUCOSE 102 mg/dL (74-106)
[2018-07-30 19:45] LABS: CKMB 1.3 U/L (0.0-3.6); CREATINE KINASE 62 UL (21-215); PRO BNP 241 pg/mL (0-125)
[2018-07-30 19:47] LABS: TROPONIN-I < 0.017 ng/mL (0.000-0.060)
[2018-07-30 20:10] VITALS: BP 168/72
[2018-07-30 20:50] VITALS: BP 197/108
[2018-07-30 21:37] VITALS: BP 159/87
[2018-07-31 01:39] VITALS: BP 167/76; Ht 157.5 cm; Wt 84.1 kg
[2018-07-31 01:44] LABS: CREATINE KINASE 59 UL (21-215); TROPONIN-I < 0.017 ng/mL (0.000-0.060)
[2018-07-31 04:00] VITALS: BP 123/60
[2018-07-31 08:21] LABS: CALC OSMOLALITY 279 mosm/kg (275-300); CALCIUM 8.7 mg/dL (8.5-10.1); CARBON DIOXIDE 26.9 mmol/L (21.0-32.0); CHLORIDE - SERUM 105 mmol/L (98-107); CKMB 1.3 U/L (0.0-3.6); CREATINE KINASE 50 UL (21-215); CREATININE - SERUM 1.3 mg/dL (0.6-1.3); GLUCOSE 98 mg/dL (74-106); POTASSIUM - SERUM 3.7 mmol/L (3.5-5.1); SODIUM 140 mmol/L (136-145); TROPONIN-I < 0.017 ng/mL (0.000-0.060); UREA NITROGEN 14 mg/dL (7-18); eGFR NON AFRICAN AMERICAN 43 mL/min (90-120)
[2018-07-31] MEDS ORDERED: BENADRYL25 MG PO (08:28)
[2018-07-31] MEDS ORDERED: FLUTICASONE PRO16 GM NASAL (08:28)
[2018-07-31 08:32] VITALS: BP 124/56
== END 2018-07-31 13:35 | disposition home or self-care (01) ==
LOC: OBSVTIME → D.OPS 18:32 → D.ER 18:32 → D.M2 20:40 → D.CLR 20:40 → D.EDHOLD 20:40 → D.ER 20:40 → OBSVTIME 20:40 → D.EDHOLD 21:06 → D.M2 21:06 → D.ER 21:44 → D.CLR 07-31 10:56 → D.M2 07-31 10:56 → EDSTATUS 07-31 12:00 → D.CLR 07-31 13:35 → D.OPS 07-31 13:35 → D.CLR 07-31 13:35
PROVIDERS: Emergency Medicine; Family Medicine
DX: I25.10 Atherosclerotic heart disease of native coronary artery without angina pectoris (principal); T82.855A Stenosis of coronary artery stent, initial encounter; Y83.8 Other surgical procedures as the cause of abnormal reaction of the patient, or of later complication, without mention of misadventure at the time of the procedure; I11.0 Hypertensive heart disease with heart failure; I50.9 Heart failure, unspecified; E78.5 Hyperlipidemia, unspecified; E11.9 Type 2 diabetes mellitus without complications; I48.91 Unspecified atrial fibrillation; J44.9 Chronic obstructive pulmonary disease, unspecified; G40.909 Epilepsy, unspecified, not intractable, without status epilepticus

== ENCOUNTER → 2019-06-14 09:00 | Outpatient (CLI) | payer MEDICARE ==
[2018-07-31 01:39] VITALS: BMI 33.9
[~2019-06-14 09:00] MED LIST changes: +FLUTICASONE PRO16 GM NASAL; +NEXIUM20 MG PO
== END | disposition home or self-care (01) ==
LOC: D.MAMMO 09:00
PROVIDERS: ATTEND General Practice
DX: Z12.31 Encounter for screening mammogram for malignant neoplasm of breast (principal)

== ENCOUNTER → 2021-05-01 07:48 | Outpatient (CLI) | payer MEDICARE ==
[2018-07-31 01:39] VITALS: BMI 33.9
== END | disposition home or self-care (01) ==
LOC: D.HCCARDIO 07:48
PROVIDERS: ATTEND Internal Medicine Cardiovascular Disease
DX: I25.10 Atherosclerotic heart disease of native coronary artery without angina pectoris (principal)